=== PATIENT | female | born 1995 | race Caucasian/White ===

== ENCOUNTER → 2023-09-19 10:54 | Outpatient (REF) | payer OTHER, SELFPAY | LOC: RAD 10:54 | PROVIDERS: ATTENDING PHYSICIAN Obstetrics & Gynecology | DX: O26.859 Spotting complicating pregnancy, unspecified trimester (principal) | CPT/HCPCS: 76801 ==

== ENCOUNTER 2023-12-07 13:15 | Emergency (ER) | payer OTHER, SELFPAY ==
[2023-12-07 13:17] VITALS: BP 149/88
--- NOTE | 2023-12-07 13:52 | ED.GENMED ---
History of Present Illness
General
Chief Complaint: Problems
Source: patient
Exam Limitations: none
Time Seen by Provider: 12/07/23 13:51
Nursing documentation reviewed up to this point in time: agreed with
History of Present Illness
History of Present Illness:
28-year-old G2, P0 female with a past medical history of factor V Leiden presenting emergency department today with concerns of vaginal spotting during . Patient is 21 weeks . Patient follows with [facility] and
follows with Dr. Arvizu and Dr. Francisco. Patient reports that around 8:30 AM this morning, she noticed spotting. She contacted her [employer] who advised her to report to emergency department for further evaluation. Patient denies any abdominal
pain, fevers or chills, dysuria, hematuria, chest pain, shortness of breath. Patient has been 1 other instance in her life in which she had a miscarriage. This is her second . Patient has no living children. Patient states that
her has been unremarkable thus far. Patient Nuys any nausea or vomiting
Past History
Past History
ED Past Medical History: None
ED Past Surgical History: None
Social History
Tobacco: Non-smoker
Alcohol: None
Drug: None
Personal: Single
Living: with family
Review of Systems
Review of Systems
All Other Systems: ROS reviewed and negative except as documented in HPI and ROS
Phy Exam
Physical Exam
Physical Exam:
General: Patient is well appearing and in no acute distress; non-toxic
Skin: Warm and dry, no rashes or lesions
Head: Normocephalic, atraumatic
Eyes: Sclera non-icteric. EOMs intact.
Cardiac: Regular rate and rhythm, no murmurs
Peripheral Vascular: No lower extremity swelling or edema
Pulm: Normal respiratory effort
Abdomen: No abdominal tenderness to palpation, gravid uterus noted, heart tones 160.
Neuro: CN II-XII intact, no focal neurologic deficits.
Psychiatric: Appropriate mood and affect.
Course
Orders/Labs/Results
Orders:
Orders
12/07/23 13:25
US Limited Urgent
Reason For Exam: spotting
12/07/23 14:18
Type+Screen Urgent
Beta HCG Quantitative Urgent
Comment: ADD ON
Complete Blood Count/With Diff Urgent
Comprehensive Metabolic Panel Urgent
12/07/23 14:19
Add On- LAB Urgent
Tests Added?: Serum HCG Quantitative
12/07/23 14:45
Heart Tones ONCE
Abnormal Lab Results
12/07/23
14:18
WBC 16.9 H 10^3/uL
(4.8-10.8)
RBC 3.68 L 10^6/uL
(4.20-5.40)
Hct 34.6 L %
(37.0-47.0)
MCH 32.6 H pg
(27.0-31.0)
Abs Immat Gran (auto) 0.1 H 10^3/uL
(0-0.05)
Absolute Neuts (auto) 14.5 H 10^3/uL
(1.4-6.5)
Absolute Monos (auto) 0.9 H 10^3/uL
(0.1-0.6)
Immature Gran % 0.7 H %
(0-0.5)
Neutrophils % 85.6 H %
(42.2-75.2)
Lymphocytes % 7.8 L %
(20.5-51.1)
Creatinine 0.5 L mg/dL
(0.6-1.0)
AST 50 H U/L
(14-36)
ALT 65 H U/L
(0-35)
12/07/23 14:18
12/07/23 14:18
Vital Signs
Initial and Last Documented VS:
Initial Vital Signs
Temp Pulse Resp BP Pulse Ox
97.5 F 91 16 149/88 99
12/07/23 13:17 12/07/23 13:17 12/07/23 13:17 12/07/23 13:17 12/07/23 13:17
Last Documented Vital Signs
Temp Pulse Resp BP Pulse Ox
98.5 F 83 16 127/82 98
12/07/23 14:25 12/07/23 14:25 12/07/23 14:25 12/07/23 14:25 12/07/23 14:25
Information
Weeks gestation: Weeks: (21)
Location: Location: (uterus)
MDM/Problems Addressed
Differential Diagnosis Includes:
ddx include threatened miscarriage, placental abruption, vaginal tear, vaginal mass, cervical mass
MDM/Problems Addressed:
Vaginal bleeding during :
28-year-old G2, P0 female with a past medical history of factor V Leiden presenting emergency department today with concerns of vaginal spotting during . Patient is 21 weeks . This started about 8:30 AM. She is well-appearing on
exam. Her vitals are stable. She does have elevated white blood cell count however patient has no signs or symptoms of infection, and she is 21 weeks . Her CMP is unremarkable. Blood type is A positive. RhoGAM not indicated. Pelvic
ultrasound reveals normal IUP without complication, cervix measuring 3.8 cm in length, I contacted patient's [employer] who came to evaluate the patient in the emergency department and did a pelvic exam noting a bleeding cervical polyp. Patient will
follow-up with her as outpatient. Patient stable for discharge.
Chronic conditions affecting care:
n/a
Acute Exacerbation and/or Progression of Chronic Illness:
n/a
*Pulse Oximetry
Patient hypoxic: no
*Critical Care Note
Total Time (30-74mins, 75-104mins- exclusive of procedures): Not Applicable
Data Reviewed
Prescriptions/Medications Considered But Not Given:
n/a
Further Testing Considered But Not Given:
n/a
Patient Management
Escalation/DeEscalation of care consider admission/obs:
Reviewed case with my attending Dr. York and OBGYN Dr. Arvizu.
ED Attending Note
-
Portions of this chart may have been created with voice recognition software.� Occasional wrong word or��sound alike� substitutions may have occurred due to the inherent limitations of voice recognition software.
Discharge Plan
Departure
Patient Disposition: Home (Routine Discharge)
Date of Disposition: 12/07/23
Time of Disposition: 16:08
Patient with high blood pressure during this ER visit?: Yes
Condition: Good
Discharge Problem:
Vaginal spotting, Cervical polyp
Instructions: symptoms, Bleeding Later in , BLOOD PRESSURE
Prescriptions:
No Action
Vitamin C:
1 cap PO DAILY
ondansetron 4 MG tablet,disintegrating
4 mg PO TIDPRN PRN (Reason: Nausea) Qty: 12 0RF
Referrals:
Althea Buck CRNP [Family Provider] -
Activity Restrictions/Additional Instructions:
Please follow up with your OBGYN.
Please return emergency department should you experience dizziness, lightheadedness, persistent bleeding, abdominal pain, headache, palpitations, shortness of breath, chest pain, fainting spells, or any other signs or symptoms concerning to you.
Interventions
Interventions:
*Risk Screen - Suicide Last Done: 12/07/23 14:25
*General Assessment Last Done: 12/07/23 14:25
*Neglect/Abuse Screening Last Done: 12/07/23 14:25
ED- Fall Risk Assessment Last Done: 12/07/23 16:29
*ED COVID-19 Vaccine History Last Done: 12/07/23 14:25
*Nursing Disposition Last Done: 12/07/23 16:29
ED-Female Genitourinary Assessment Last Done: 12/07/23 14:25
Discharge Date and Time
Discharge Date/Time: 12/07/23 16:30
Print Language: SPANISH
[2023-12-07 14:25] VITALS: BP 127/82; BMI 27.2
[2023-12-07 14:31] LABS: % Basophils 0.2 % (0-2); % Eosinophils 0.1 % (0-6); % Immature Granulocytes 0.7 % (0-0.5); % Lymphocytes 7.8 % (20.5-51.1); % Monocytes 5.6 % (1.7-9.3); % Neutrophils 85.6 % (42.2-75.2); Absolute Immature Granulocytes 0.1 10^3/uL (0-0.05); Absolute Lymphocytes 1.3 10^3/uL (1.2-3.4); Absolute Monocytes 0.9 10^3/uL (0.1-0.6); Absolute Neutrophils 14.5 10^3/uL (1.4-6.5); Hematocrit 34.6 % (37.0-47.0); Mean Corp Hgb Conc. 34.7 g/dL (33.0-37.0); Mean Corpuscular Hgb 32.6 pg (27.0-31.0); Mean Platelet Volume 10.1 fL (7.4-10.4); Nucleated Red Blood Cells % 0 %; Platelet Count 218 10^3/uL (130-400); Red Blood Cell Count 3.68 10^6/uL (4.20-5.40); Red Cell Dist. Width 13.8 % (11.5-14.5); White Blood Cell Count 16.9 10^3/uL (4.8-10.8)
[2023-12-07 14:45] LABS: ALT (SGPT) 65 U/L (0-35); AST (SGOT) 50 U/L (14-36); Alkaline Phosphatase 68 U/L (38-126); Blood Urea Nitrogen 8 mg/dl (7-17); Calcium 9.8 mg/dl (8.4-10.2); Carbon Dioxide 26 mmol/L (22-30); Chloride 107 mmol/L (98-107); Estimated Creatinine Clearance > 125 ml/min; Glucose 95 mg/dl (70-99); Potassium 3.7 mmol/L (3.5-5.1); Sodium 136 mmol/L (135-145); Total Bilirubin 0.4 mg/dl (0.2-1.3); Total Protein 6.6 g/dl (6.3-8.2); eGFR > 60.00
--- NOTE | 2023-12-07 17:12 | W.PN.OBG.DWH ---
Today's Communication / Plan
-
d/c home from ER
Assessment/Plan
-
28yo with spotting in the 2nd trimester and cervical polyp
reviewed findings on exam, this is likely a cervical polyp and the source of her spotting. These are typically benign growths. Recent pap smear in 01/2023 was Neg so my suspicion for abnormal pathology is low. It can be left alone, it is likely to
slough off during labor. can expect to have intermittent spotting with this present, but any heavy bleeding is a reason to let us know. otherwise f/u in office for routine care.
reviewed US was normal, no concern for subchorionic collection.
-after patient left and I was writing her note, I noted that her LFTs are elevated. Her BP was normal and no noted history in our records for liver disease. I will therefore contact patient and have her repeat LFTs to trend.
Encounter and documentation Time= 20 mins
Subjective Data
-
28yo @ 21.4wks presented to ED due to persistent spotting that seems to have now resolved. She first noticed this morning after straining to have a BM. She denies anything in the vagina recently. She denies pelvic pain, has felt
movement today. Her has thus far been significant for persistent GBS bacteriuria for which she has been on various antibiotics
Objective Data
-
Laboratory Results
12/07/23 14:18
12/07/23 14:18
Vital Signs
Temp Pulse Resp BP Pulse Ox
98.5 F 83 16 127/82 98
12/07/23 14:25 12/07/23 14:25 12/07/23 14:25 12/07/23 14:25 12/07/23 14:25
AST-50
ALT-65
Pelvic US: There is a single live intrauterine gestation in transverse presentation. The placenta is located anteriorly and is free of the internal cervical os. The inferior tip of the cervix is located 1.5 cm from the internal cervical os. The
heart rate measures 155 bpm. The amniotic fluid volume appears normal. The amniotic fluid index measures 12.99 cm. The cervix measures 3.8 cm in length.
Gen: nad aaox3
Abd: gravid, non tender
SSE: no blood noted in the vagina, there is an elongated bilobed flesh colored polypoid lesion protruding from the cervical os, approx 1.5cm in length, friable with a hint of blood when probed with a scopette.
== END 2023-12-07 16:30 | disposition home or self-care (01) ==
LOC: EMR 13:15
PROVIDERS: Physician Assistant; EMERGENCY PHYSICIAN Emergency Medicine; FAMILY PHYSICIAN Nurse Practitioner Primary Care
DX: O46.92 Antepartum hemorrhage, unspecified, second trimester (principal); O34.42 Maternal care for other abnormalities of cervix, second trimester; N84.1 Polyp of cervix uteri; Z3A.21 21 weeks gestation of pregnancy; O99.112 Other diseases of the blood and blood-forming organs and certain disorders involving the immune mechanism complicating pregnancy, second trimester; D68.51 Activated protein C resistance
CPT/HCPCS: 99284; 76815; 80053; 84702; 85025; 86850; 86900; 86901

== ENCOUNTER 2024-04-16 10:34 | Inpatient (IN) | payer BC, SELFPAY ==
[2024-04-16 10:40] VITALS: BP 138/95; BMI 29.3
[2024-04-16] MEDS: LR 1000 IV ×3 (11:04→19:48)
[2024-04-16 11:29] LABS: % Basophils 0.4 % (0-2); % Eosinophils 0.1 % (0-6); % Immature Granulocytes 0.5 % (0-0.5); % Lymphocytes 13.7 % (20.5-51.1); % Monocytes 5.9 % (1.7-9.3); % Neutrophils 79.4 % (42.2-75.2); Absolute Basophils 0.1 10^3/uL (0-0.2); Absolute Immature Granulocytes 0.1 10^3/uL (0-0.05); Absolute Lymphocytes 1.8 10^3/uL (1.2-3.4); Absolute Monocytes 0.8 10^3/uL (0.1-0.6); Absolute Neutrophils 10.7 10^3/uL (1.4-6.5); Hematocrit 38.6 % (37.0-47.0); Hemoglobin 13.6 g/dL (12.0-16.0); Mean Corp Hgb Conc. 35.2 g/dL (33.0-37.0); Mean Corpuscular Hgb 32.6 pg (27.0-31.0); Mean Corpuscular Volume 92.6 fL (81.0-99.0); Mean Platelet Volume 10.8 fL (7.4-10.4); Nucleated Red Blood Cells % 0 %; Platelet Count 203 10^3/uL (130-400); Red Blood Cell Count 4.17 10^6/uL (4.20-5.40); White Blood Cell Count 13.5 10^3/uL (4.8-10.8)
[2024-04-16] MEDS: PENICILLIN 110 UNITS IV (11:46)
[2024-04-16] MEDS: SUBLIMAZE 100 MCG EPIDURAL (14:20)
[2024-04-16] MEDS: FENTANYL/BUPIVACAINE 100 EPIDURAL (14:20)
[2024-04-16] MEDS: PENICILLIN 55 UNITS IV ×2 (16:06→20:04)
[2024-04-16] MEDS: PITOCIN 30 UNITS/NSS 500 ML IV ×2 (18:26→22:22)
[2024-04-16] MEDS: TRANEXAMIC ACID 100 IV (22:52)
[2024-04-17] MEDS: MOTRIN 600 MG PO ×4 (02:11→22:44)
[2024-04-17] MEDS: TYLENOL 650 MG PO (02:11)
[2024-04-17 05:19] LABS: Hemoglobin 11.4 g/dL (12.0-16.0)
[2024-04-17] MEDS: PRENATAL PLUS 1 TABLET PO (08:07)
[2024-04-17] MEDS: SENOKOT-S 1 TABLET PO (08:11)
[2024-04-18] MEDS: SENOKOT-S 1 TABLET PO (08:48)
[2024-04-18] MEDS: PRENATAL PLUS 1 TABLET PO (08:48)
[2024-04-20 11:40] LABS: Syphilis/T. pallidum Ab Reflex Negative (Negative)
== END 2024-04-18 11:40 | disposition home or self-care (01) | DRG 807 ==
LOC: LDRP 10:34
PROVIDERS: ADMITTING PHYSICIAN Obstetrics & Gynecology
PROC: 0HQ9XZZ Repair Perineum Skin, External Approach (ICD-10-PCS; 2024-04-16)
PROC: 10E0XZZ Delivery of Products of Conception, External Approach (ICD-10-PCS; 2024-04-16)
PROC: 0UQMXZZ Repair Vulva, External Approach (ICD-10-PCS; 2024-04-16)
DX: O48.0 Post-term pregnancy (principal); Z37.0 Single live birth; Z3A.40 40 weeks gestation of pregnancy; O99.824 Streptococcus B carrier state complicating childbirth; O70.0 First degree perineal laceration during delivery
CPT/HCPCS: 36415; 85014; 85018; 85025; 86780; 86850; 86900; 86901